=== PATIENT | male | born 1995 | race Two or more races ===

== ENCOUNTER 2024-11-29 12:37 | Outpatient (REF) | payer OTHER, SELFPAY ==
--- NOTE | ~2024-11-29 | XR_ITS ---
EXAMINATION: XR SCAPULA, RIGHT CLINICAL INFORMATION: M89.8X1 - Other specified disorders of bone, shoulder COMPARISON: None available. TECHNIQUE: AP and scapular Y views of the right scapula. FINDINGS: No acute cortical disruption. No lytic or blastic lesions. No metallic or radiopaque foreign body. There is a 1 cm gap at the acromioclavicular joint. XR/XR scapula RT IMPRESSION: Normal x-ray, right scapula. 1 cm gap, right acromioclavicular joint. Electronically signed by: Tom Arshad MD 11/29/2024 01:59 PM EDT
[2024-11-29 16:04] LABS: MANUAL DIFF FLAG NO
[2024-11-29 16:11] LABS: Hematocrit 42.4 % (42.0-52.0); Hemoglobin 14.5 g/dl (14.0-18.0); Imm Gran Abs Auto 0.01 X10*3/uL (0.00-0.03); Imm Gran Pct Auto 0.2 % (0.0-0.4); Lymphocytes Absolute Auto 1.6 X10*3/uL (1.2-4.9); Mean Corpuscular HGB Conc 34.2 g/dl (31.0-36.0); Mean Corpuscular Hemoglobin 29.6 pg (27.0-33.0); Mean Corpuscular Volume 86.5 fL (80.0-98.0); NRBC Abs Auto 0.000 X10*3/uL (0.0-0.012); NRBC Pct Auto 0.0 /100WBC (0.0-0.2); Platelet Count 263 X10*3/uL (160-400); Red Blood Count 4.90 X10*6/uL (4.60-5.80); White Blood Count 6.2 X10*3/uL (4.8-10.8)
[2024-11-29 16:17] LABS: Appearance Urine Clear; Glucose Urine UA Negative (Negative); PH 6.0 (5.0-9.0); Specific Gravity - Urine 1.025 (1.005-1.025)
[2024-11-29 16:32] LABS: Alanine Aminotransferase 26 U/L (0-40); Albumin Level 4.2 g/dL (3.5-5.0); Alkaline Phosphatase 72 U/L (39-117); Anion Gap 10 (12-20); Aspartate Amino Transferase 30 U/L (5-37); Blood Urea Nitrogen 11 mg/dL (9-16); Calcium 8.8 mg/dL (8.4-10.2); Carbon Dioxide 29 mmol/L (22-29); Chloride 106 mmol/L (96-108); Cholesterol 192 mg/dL (<200); Estimated Glomerular Filt Rate > 60; HDL Cholesterol 57 mg/dL (>40); Potassium 4.2 mmol/L (3.3-5.1); Sodium 141 mmol/L (135-145); Total Protein 6.9 g/dL (6.5-8.0); Triglycerides 80 mg/dL (<150)
== END 2024-11-29 12:38 | disposition home or self-care (01) ==
LOC: HO.HMGCX 12:37
PROVIDERS: PCP Nurse Practitioner Family; Visit Provider Nurse Practitioner Family
DX: Z00.01 Encounter for general adult medical examination with abnormal findings (principal); M89.8X1 Other specified disorders of bone, shoulder; Z13.31 Encounter for screening for depression; Z13.39 Encounter for screening examination for other mental health and behavioral disorders
CPT/HCPCS: 36415; 73010; 80053; 80061; 81003; 84443; 85025; 96127

== ENCOUNTER 2024-11-29 12:37 | Outpatient (AMB) | payer MEDICARE, SELFPAY ==
--- NOTE | 2024-11-29 12:40 | A.OFFPC_ITS ---
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 Ethics Manager Required: Yes Accompanied by: Self / Same As Patient Allergies No Known Allergies Allergy (Verified 11/29/24 12:43) Tobacco use date assessed: 11/29/24 Dental Screening Dental Screen Date: 11/29/24 Did you have a dental visit in the last 12 months?: No Did you have a dental problem in the last 6 months where you did not have access to dental care?: No Was dental information given to patient?: Patient has dentist HPI 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 The patient reports experiencing pain in the right upper scapular region for several months. 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 He denies any shoulder pain or loss of use of his right upper extremity. Physical examination revealed tenderness with deep palpation of the right mid scapular region and atrophy of the right trapezius muscle compared to the left. Neurological tests including neers, Carter, and Jobes were negative. The patient denies any fevers, chills, suicidal ideation, or homicidal ideation. 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 Denies shoulder pain or loss of use of right upper extremity. - General: Denies fevers or chills. - Psychiatric: Denies suicidal ideation or homicidal ideation. -denies any fevers, chills, CP, SOB, Physical Exam General: Cooperative, healthy appearing, comfortable, no acute distress and well developed Orientation: Patient oriented x3 Limitations: No limitations Head: Normal to inspection Ears: Hearing grossly normal bilaterally Nose: Normal external nose present Face and sinus: Normal facial exam Eyes: Appearance normal, both eyes and all related structures Neck: Normal visual inspection and Yes full ROM Respiratory: Normal respiratory effort and able to speak in complete sentences. Clear to auscultation bilaterally Cardiovascular: Regular rate and rhythm. Normal S1 and S2 GI: Normal to inspection. Soft to palpation and nontender Skin: No rashes or lesions noted Neuro: Patient oriented x3 Extremities: Right trapezius is atrophied compared to the left. Tenderness with deep palpation of the right mid scapular region. No active lesions noted. no signs of scoliosis. neg right sarita, carter, amparo. Results Plan The patient will be started on meloxicam for pain management and baclofen for muscle relaxation. He has been advised to take meloxicam with food or milk to prevent gastrointestinal discomfort and is aware that baclofen may cause drowsiness. A scapular X-ray will be obtained to further evaluate the right scapular pain. The patient is encouraged to have fasting labs done in the near future. He is instructed to contact the clinic if the discomfort persists, and the effectiveness of the medications will be monitored. Discussion Notes I discussed with the patient the initiation of meloxicam and baclofen for managing his right scapular pain and muscle relaxation. I informed him about the importance of taking meloxicam with food or milk and the potential drowsiness caused by baclofen. We also discussed obtaining a scapular X-ray and the need for fasting labs in the near future. I advised him to contact me if his discomfort continues and to monitor the effectiveness of the medications. Patient Instructions - Take meloxicam with food or milk to av oid stomach upset. - Be aware that baclofen may cause drows iness. - Schedule and complete a scapular X-ray . - Get fasting labs done soon. - Contact the clinic if pain persists or worsens. PFSH Medical History H/O appendicitis Social History Housing: House Patient Tobacco Use Status: Never used Tobacco e-Cigarette/Vaping Use: Never Used Current occupational status: employed Questionnaire PHQ-9 Over the last 2 weeks, how often have you been bothered by any of the following problems? 1. Little interest or pleasure in doing things: more than half the days 2. Feeling down, depressed, or hopeless: not at all 3. Trouble falling or staying asleep, or sleeping too much: not at all 4. Feeling tired or having little energy: not at all 5. Poor appetite or overeating: not at all 6. Feeling bad about yourself - or that you are a failure or have let yourself or your family down: several days 7. Trouble concentrating on things, such as reading the newspaper or watching television: several days 8. Moving or speaking so slowly that other people could have noticed. Or the opposite - being so fidgety or restless that you have been moving around a lot more than usual: not at all 9. Thoughts that you would be better off or of hurting yourself in some way: not at all Total score: 4 Depression Screening Interpretation: Negative Depression Screening Done: Yes 36502 - PHQ-9 Billing: Yes Source: Developed by Drs. Pietro Garcia, Viki Bridges, Israel Lou and colleagues, with an educational abhinav from [employer]. Thrive Questionnaire I am a: Patient What is your living situation today?: I have a place to live, but I am worried about losing it in the future Within the past 12 months, did the food you bought not last and you didn't have the money to get more?: Sometimes True Within the past 12 months, did you worry whether your food would run out before you got money to buy more?: Sometimes True Do you have trouble paying for medicines?: Yes Do you have trouble getting transportation to medical appointments?: No Do you have trouble paying your heating and electricity bill?: Yes Do you have trouble taking care of your child, family member or friend?: Yes Do you have trouble with day-to-day activities such as bathing, preparing meals, shopping, managing finances, etc.?: Yes Are you currently unemployed and looking for a job?: No Are you interested in more education?: No Please select the resources that you would like help with: Housing/Custodial and Paying for medicine Currently or been in a relationship where the following occur: No concerns reported THRIVE Score: 4 AUDIT C Alcohol Use Questionnaire (AUDIT-C) 1. How often do you have a drink containing alcohol?: Never Total Score: 0 GINGER-7 AMB Questionnaire GINGER-7 Date GINGER - 7 assessed: 11/29/24 Feeling nervous, anxious, or on edge: 0 = Not at all Not being able to stop or control worryin = Several days Worrying too much about different things: 1 = Several days Trouble relaxin = Not at all Being so restless that it is hard to sit still: 0 = Not at all Becoming easily annoyed or irritable: 0 = Not at all Feeling afraid as if something awful might happen: 0 = Not at all Total GINGER-7 score (0-4 normal; 5-9 mild; 10-14 moderate; 15-21 severe): 2 Source: Developed by Drs. Pietro Garcia, Viki Bridges, Israel Lou and colleagues, with an educational abhinav from [employer]. GINGER-7 Assessment Billing GINGER-7 Assessment Tool: GINGER-7 Assessment 00462 Physical exam (Primary Care) Vital Signs: Last Vital Signs Temp 98.7 F 11/29/24 12:42 Pulse 75 11/29/24 12:42 Resp 16 11/29/24 12:42 BP 128/82 11/29/24 12:42 Pulse Ox 98 11/29/24 12:42 Oxygen Delivery Method Room Air 11/29/24 12:42 BMI result Body Mass Index 25.8 Tobacco/Smoking Status: Tobacco use Status Tobacco use date assessed 11/29/24 11/29/24 12:48 Patient Tobacco Use Status Never used Tobacco 11/29/24 12:48 e-Cigarette/Vaping Use Never Used 11/29/24 12:48 PHQ-9: PHQ-9 Score PHQ-9: Total score 4 11/29/24 12:48 Depression Screening Interpretation: Negative Currently or been in a relationship where the following occur: No concerns reported Coding Level of Care Code Est Pt Level 3 (65023) New Pt Prev Care 18-39yr(67631 Diagnoses Encounter for routine adult physical exam with abnormal findings Z00.01 Pain of right scapula M89.8X1 Additional Codes GINGER-7 Assessment Billing - GINGER-7 Assessment Tool: GINGER-7 Assessment 62661 ([id number]) PHQ-9 - 57626 - PHQ-9 Billing: Yes ([id number]) Assessment & Plan Assessment & Plan (1) Encounter for routine adult physical exam with abnormal findings: Code(s): Z00.01 - Encounter for general adult medical examination with abnormal findings Category: Medical (2) Pain of right scapula: Code(s): M89.8X1 - Other specified disorders of bone, shoulder Category: Medical Plan . Orders: Orders Complete Blood Count Auto Diff Today Z00.01 - Encounter for general adult medical examination with abnormal findings Comprehensive Morton. Panel Fast Today Z00.01 - Encounter for general adult medical examination with abnormal findings TSH reflex Free T4 Today Z00.01 - Encounter for general adult medical examination with abnormal findings UA CC w/rflx Micro + Cult Today Z00.01 - Encounter for general adult medical examination with abnormal findings Lipid Panel Today Z00.01 - Encounter for general adult medical examination with abnormal findings XR scapula RT Today M89.8X1 - Other specified disorders of bone, shoulder Medications: New meloxicam 15 mg PO DAILY PRN 30 tabs 1RF pain baclofen 10 mg PO BID PRN 60 tabs 0RF muscle spasm 30 days
[2024-11-29 12:42] VITALS: BP 128/82; PULSE 75; RESP 16; TEMP 37.1; O2SAT 98; BMI 25.8
== END 2024-11-29 13:23 | disposition home or self-care (01) ==
LOC: HO.HMCC 12:38
PROVIDERS: Visit Provider Nurse Practitioner Family
DX: Z00.01 Encounter for general adult medical examination with abnormal findings (principal); M89.8X1 Other specified disorders of bone, shoulder

== ENCOUNTER → 2024-11-29 13:46 | Outpatient (BNV) | payer OTHER, SELFPAY | PROVIDERS: PCP Nurse Practitioner Family; Visit Provider Radiology Diagnostic Radiology | DX: S43.121A Dislocation of right acromioclavicular joint, 100%-200% displacement, initial encounter (principal) | CPT/HCPCS: 73010 ==

== ENCOUNTER 2024-12-20 09:18 | Outpatient (REF) | payer OTHER, SELFPAY ==
--- NOTE | ~2024-12-20 | XR_ITS ---
EXAMINATION: XR SHOULDER, RIGHT CLINICAL INFORMATION: M25.511 - Pain in right shoulder COMPARISON: Right scapula x-ray dated November 29, 2024. TECHNIQUE: AP external rotation, Grashey, scapular Y, and axillary views of the right shoulder. FINDINGS: No acute cortical disruption. There is a 5.9 mm gap at the acromioclavicular joint. No lytic or blastic lesions. 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 Electronically signed by: Tom Arshad MD 12/20/2024 09:37 AM EDT
== END 2024-12-20 09:19 | disposition home or self-care (01) ==
LOC: HO.HOSX 09:18
DX: M25.511 Pain in right shoulder (principal); M89.8X1 Other specified disorders of bone, shoulder; M24.811 Other specific joint derangements of right shoulder, not elsewhere classified; S43.101A Unspecified dislocation of right acromioclavicular joint, initial encounter; X50.3XXA Overexertion from repetitive movements, initial encounter; Y93.89 Activity, other specified; Y92.89 Other specified places as the place of occurrence of the external cause; Y99.0 Civilian activity done for income or pay
CPT/HCPCS: 73030

== ENCOUNTER 2024-12-20 09:18 | Outpatient (AMB) | payer OTHER, SELFPAY ==
[2024-12-20 09:26] VITALS: BMI 25.8
--- NOTE | 2024-12-20 09:26 | A.OFFVIS_ITS ---
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 Per referring provider, patient has a 1 cm gap of the right acromioclavicular joint. Patient reports pain has been present for many years but it worsened recently. His pain is primarily at at shoulder blade. 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 He has been taking it easy at work to minimize pain. He continues taking meloxicam and baclofen PRN with relief. 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 Per referring provider, patient has a 1 cm gap of the right acromioclavicular joint. Patient reports pain has been present for many years but it worsened recently. His pain is primarily at at shoulder blade. 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 He has been taking it easy at work to minimize pain. He continues taking meloxicam and baclofen PRN with relief. The patient states that he does not have any pain in the true shoulder itself, however all of his pain is located in the back aspect of his shoulder around the scapula and occasionally radiating up to the neck. 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 Review of Systems Const All systems reviewed & are unremarkable except as noted in HPI and below Physical Exam Vital Signs: BMI result Body Mass Index 25.8 Extrem Other: Patient's right shoulder does demonstrate a small bump in the area of the AC joint, consistent with previously diagnosed AC joint separation, otherwise normal to inspection No erythema, ecchymosis, edema noted No lacerations, abrasions, open areas No evidence of infection Mild tenderness to palpation of the right deltoid Patient reports no tenderness to palpation of the periscapular muscles, acromion, clavicle, AC joint, bicipital groove, or elsewhere on the right shoulder Patient is able to forward flex the right shoulder to approximately 150 degrees without difficulty External rotation to approximately 80 degrees without difficulty Distal sensation intact Capillary refill brisk Results Reviewed Results Reviewed: X-rays obtained in the office today and independently reviewed by me, Anselmo Casarez PA-C, demonstrate grade 2 AC joint separation of the right shoulder. Assessment & Plan Assessment & Plan (1) Pain of right scapula: Code(s): M89.8X1 - Other specified disorders of bone, shoulder Category: Medical (2) Acromioclavicular joint separation: Code(s): S43.109A - Unspecified dislocation of unspecified acromioclavicular joint, initial encounter Category: Medical (3) Internal derangement of right shoulder: Code(s): M24.811 - Other specific joint derangements of right shoulder, not elsewhere classified Category: Medical Plan 1. Periscapular pain of right scapula, likely secondary to shoulder insufficiency 2. AC joint separation, grade 2, no known injury Patient is educated about these conditions Patient is educated about the treatment options available, namely physical therapy At this time, patient is referred to physical therapy for range of motion, strengthening, stabilization of the right shoulder in the setting of instability and periscapular pain, as well as an AC joint separation Patient is advised he can return to work as tolerated, however should avoid particularly heavy lifting or lots of repetitive activities overhead Patient understands this is amenable to this plan Follow-up as needed Orders: Orders PT Evaluation and Treatment Today M24.811 - Other specific joint derangements of right shoulder, not elsewhere classified, M89.8X1 - Other specified disorders of bone, shoulder, S43.109A - Unspecified dislocation of unspecified acromioclavicular joint, initial encounter XR shoulder RT min 2V Today M25.511 - Pain in right shoulder Coding Level of Care Code New Pt Level 3 (11808) Diagnoses Pain of right scapula M89.8X1 Acromioclavicular joint separation S43.109A Internal derangement of right shoulder M24.811
== END 2024-12-20 09:53 | disposition home or self-care (01) ==
LOC: HO.HOS 09:19
DX: M89.8X1 Other specified disorders of bone, shoulder (principal); S43.101A Unspecified dislocation of right acromioclavicular joint, initial encounter; M24.811 Other specific joint derangements of right shoulder, not elsewhere classified
CPT/HCPCS: 99203

== ENCOUNTER → 2024-12-20 09:24 | Outpatient (BNV) | payer OTHER, SELFPAY | PROVIDERS: Visit Provider Radiology Diagnostic Radiology | DX: S43.101A Unspecified dislocation of right acromioclavicular joint, initial encounter (principal) | CPT/HCPCS: 73030 ==

== ENCOUNTER 2025-02-06 09:17 | Outpatient (AMB) | payer OTHER, SELFPAY ==
[2025-02-06 09:37] VITALS: BP 100/60; PULSE 80; RESP 15; TEMP 36.7; O2SAT 98; BMI 25.5
--- NOTE | 2025-02-06 09:37 | MHC.OFFWIV ---
Intake Vital Signs 02/06/25 09:37 Height 5 ft 10 in Weight 178 lb BMI 25.5 BP 100/60 Blood Pressure Location Lt brachial Position Sitting Respiration 15 Pulse 80 Pulse Source Pulse Oximeter Temp 98.1 F Temp Source Oral Pulse Oximetry (%) 98 Oxygen Delivery Method Room Air Intake Visit Reasons: EP-rt side upper back pain Intake Note: Pt is here today c/o upper back pain with movement picking up pallets x1week Patient Tobacco Use Status: Never used Tobacco Allergies No Known Allergies Allergy (Verified 02/06/25 09:38) Medication List - Last Reconciled 02/06/25 by Cat Haney MD baclofen 10 mg PO BID PRN 30 days meloxicam 15 mg PO DAILY PRN HPI EP-rt side upper back pain HPI Details History of Present Illness The patient is a 29-year-old male presenting with muscle strain and associated right trapezius muscle pain. Muscle strain and right trapezius muscle pain: - The pain is located in the right upper thigh. - The discomfort started approximately one week ago. 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 - Right-handed individual using the right side predominantly in his work. Problem List - Muscle strain - Right trapezius muscle pain Plan - Discontinue use of baclofen due to its ineffectiveness and contribution to dizziness. - Replace meloxicam with diclofenac to be taken twice daily, with breakfast and 12 hours later. - Discussed increasing awareness of repetitive strain and considering modifications in work habits to prevent chronic exacerbation of symptoms. - Suggested considering physical therapy as an adjunct to medication; patient expressed time constraints. Review of Systems - General: No fever no chills - Neurological: No headaches no dizziness - Ear nose throat: No sore throat no hearing difficulty no ear pain - Cardiovascular: No syncope, no chest pain, no palpitations - Gastrointestinal: No nausea vomiting or diarrhea Physical Exam General: No acute distress HEENT: No acute findings Neck: Supple Respiratory system: Able to talk in full sentences, no audible wheeze Back: In over right trapezius muscle with palpation, shoulder with full range of motion with some soreness in that area Extremities: No new findings FRANCHISE FIELD CONSULTANT: Alert awake oriented x3 motor intact Skin: Normal turgor [facility] Medical History H/O appendicitis Social History Housing: House Patient Tobacco Use Status: Never used Tobacco e-Cigarette/Vaping Use: Never Used Current occupational status: employed 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 Physical Exam Vital Signs: Last Vital Signs Temp 98.1 F 02/06/25 09:37 Pulse 80 02/06/25 09:37 Resp 15 02/06/25 09:37 BP 100/60 02/06/25 09:37 Pulse Ox 98 02/06/25 09:37 Oxygen Delivery Method Room Air 02/06/25 09:37 BMI result Body Mass Index 25.5 Assessment & Plan Assessment & Plan (1) Strain of right trapezius muscle: Code(s): S46.811A - Strain of other muscles, fascia and tendons at shoulder and upper arm level, right arm, initial encounter Qualifiers: Encounter type: initial encounter Qualified Code(s): S46.811A - Strain of other muscles, fascia and tendons at shoulder and upper arm level, right arm, initial encounter Plan History of Present Illness The patient is a 29-year-old male presenting with muscle strain and associated right trapezius muscle pain. Muscle strain and right trapezius muscle pain: - The pain is located in the right upper thigh. - The discomfort started approximately one week ago. 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 - Right-handed individual using the right side predominantly in his work. Problem List - Muscle strain - Right trapezius muscle pain Plan - Discontinue use of baclofen due to its ineffectiveness and contribution to dizziness. - Replace meloxicam with diclofenac to be taken twice daily, with breakfast and 12 hours later. - Discussed increasing awareness of repetitive strain and considering modifications in work habits to prevent chronic exacerbation of symptoms. - Suggested considering physical therapy as an adjunct to medication; patient expressed time constraints. Medications: New diclofenac sodium take it with food 75 mg PO BID 20 tabs 0RF pain 10 days Discontinued baclofen Discontinued Reason: Doctor's Order 10 mg PO BID 30 days PRN 60 tabs 0RF muscle spasm meloxicam Discontinued Reason: Doctor's Order 15 mg PO DAILY PRN 30 tabs 1RF pain Coding Level of Care Code Est Pt Level 3 (48966) Diagnoses Strain of right trapezius muscle, initial encounter S46.811A Encounter type: initial encounter
== END 2025-02-06 10:05 | disposition home or self-care (01) ==
PROVIDERS: PCP Nurse Practitioner Family; Visit Provider Internal Medicine
DX: S46.811A Strain of other muscles, fascia and tendons at shoulder and upper arm level, right arm, initial encounter (principal)

== ENCOUNTER 2025-02-13 13:58 | Outpatient (AMB) | payer OTHER, SELFPAY ==
[2025-02-13 14:04] VITALS: BP 130/86; PULSE 89; RESP 16; O2SAT 97; BMI 26.1
--- NOTE | 2025-02-13 14:04 | A.OFFPC_ITS ---
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 History of Present Illness The patient is a 29-year-old male presenting with right superior scapular pain. 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 He has attempted treatment with NSAIDs, which were ineffective, and muscle relaxants, which resulted in adverse effects such as feeling unusual. His colleagues have been supportive by not stacking pallets as high, potentially aiding in reducing the strain and facilitating healing. 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 Health Maintenance Review of Systems - Musculoskeletal: Reports right superio r scapular pain when lifting above shoulder height. Physical Exam General: Cooperative, healthy appearing, comfortable, no acute distress and well developed Orientation: Patient oriented x3 Limitations: No limitations Head: Normal to inspection Ears: Hearing grossly normal bilaterally Nose: Normal external nose present Face and sinus: Normal facial exam Eyes: Appearance normal, both eyes and all related structures Neck: Normal visual inspection and Yes full ROM Respiratory: Normal respiratory effort and able to speak in complete sentences. Clear to auscultation bilaterally Cardiovascular: Regular rate and rhythm. Normal S1 and S2 GI: Normal to inspection. Soft to palpation and nontender Skin: No rashes or lesions noted Neuro: Patient oriented x3 Extremities: Normal to inspection, no pain to right superior scapular region with deep palption Results Plan 1. Right Superior Scapular Pain The patient will be started on a different NSAID and referred to physical therapy to learn exercises that may alleviate the pain. He is advised to continue using NSAIDs as needed and to ensure that colleagues assist by not stac gregory pallets too high to prevent exacerbation of symptoms. Follow-up is scheduled for October to assess progress and adjust the treatment plan as necessary. Discussion Notes I discussed with the patient the plan to start a different NSAID and the importance of physical therapy to manage his right superior scapular pain. We also talked about the need for his colleagues to assist by not stacking pallets too high, which could help in reducing strain and allowing the area to heal. I advised him to use NSAIDs as needed and scheduled a follow-up in October to monitor his progress. Patient Instructions - Start the new muscle relaxant as presc ribed. - Attend physical therapy sessions to le arn exercises for pain management. - Use NSAIDs as needed for pain relief. - Ensure colleagues assist by not stacki ng pallets too high. - Follow up in October for reassessment. 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 Questionnaire Thrive Questionnaire Date Thrive assessed: 11/29/24 I am a: Patient What is your living situation today?: I have a place to live, but I am worried about losing it in the future Within the past 12 months, did the food you bought not last and you didn't have the money to get more?: Sometimes True Within the past 12 months, did you worry whether your food would run out before you got money to buy more?: Sometimes True Do you have trouble paying for medicines?: Yes Do you have trouble getting transportation to medical appointments?: No Do you have trouble paying your heating and electricity bill?: Yes Do you have trouble taking care of your child, family member or friend?: Yes Do you have trouble with day-to-day activities such as bathing, preparing meals, shopping, managing finances, etc.?: Yes Are you currently unemployed and looking for a job?: No Are you interested in more education?: No Currently or been in a relationship where the following occur: No concerns reported THRIVE Score: 4 GINGER-7 AMB Questionnaire GINGER-7 Date GINGER - 7 assessed: 11/29/24 Source: Developed by Drs. Pietro Garcia, Viki Bridges, Israel Lou and colleagues, with an educational abhinav from [employer]. Physical exam (Primary Care) Vital Signs: Last Vital Signs Pulse 89 02/13/25 14:04 Resp 16 02/13/25 14:04 BP 130/86 02/13/25 14:04 Pulse Ox 97 02/13/25 14:04 Oxygen Delivery Method Room Air 02/13/25 14:04 BMI result Body Mass Index 26.1 Tobacco/Smoking Status: Tobacco use Status Tobacco use date assessed 02/13/25 02/13/25 14:09 Patient Tobacco Use Status Never used Tobacco 02/13/25 14:06 e-Cigarette/Vaping Use Never Used 02/13/25 14:06 Thrive Assessment: Date of Thrive Assessment Date Thrive assessed 11/29/24 02/13/25 14:06 Currently or been in a relationship where the following occur: No concerns reported Coding Level of Care Code Est Pt Level 3 (27392) Diagnoses Pain of right scapula M89.8X1 Internal derangement of right shoulder M24.811 Assessment & Plan Assessment & Plan (1) Pain of right scapula: Code(s): M89.8X1 - Other specified disorders of bone, shoulder Category: Medical (2) Internal derangement of right shoulder: Code(s): M24.811 - Other specific joint derangements of right shoulder, not elsewhere classified Category: Medical Plan . Orders: Orders PT Evaluation and Treatment Today M24.811 - Other specific joint derangements of right shoulder, not elsewhere classified, M89.8X1 - Other specified disorders of bone, shoulder Medications: New nabumetone 500 mg PO BID PRN 30 tabs 0RF scapular pain 15 days
== END 2025-02-13 14:29 | disposition home or self-care (01) ==
LOC: HO.HMCC 13:59
PROVIDERS: PCP Nurse Practitioner Family; Visit Provider Nurse Practitioner Family
DX: M89.8X1 Other specified disorders of bone, shoulder (principal); M24.811 Other specific joint derangements of right shoulder, not elsewhere classified